=== PATIENT | female | born 1965 | race Caucasian/White ===

== ENCOUNTER 2016-09-04 15:40 | Emergency (ER) | payer OTHER ==
[~2016-09-04] VITALS: Ht 165.1 cm; Wt 95.3 kg
[2016-09-04] MEDS ORDERED: ALDACTONE50 MG PO (15:45)
[2016-09-04] MEDS ORDERED: LEVOTHYROXIN0.088 MG PO (15:45)
[2016-09-04] MEDS ORDERED: PAXIL10 MG PO (15:45)
[2016-09-04 16:41] VITALS: BP 137/63
[2016-09-04] MEDS ORDERED: IBUPROFEN 800800 M1 PO (16:56)
[2016-09-04] MEDS ORDERED: NORFLEX100 MG PO (16:56)
== END 2016-09-04 17:09 | disposition home or self-care (01) ==
LOC: ER 15:40
DX: S09.90XA Unspecified injury of head, initial encounter (principal); E03.9 Hypothyroidism, unspecified; F41.9 Anxiety disorder, unspecified; F10.99 Alcohol use, unspecified with unspecified alcohol-induced disorder; Z90.710 Acquired absence of both cervix and uterus; V89.2XXA Person injured in unspecified motor-vehicle accident, traffic, initial encounter; Y93.I9 Activity, other involving external motion; Y92.89 Other specified places as the place of occurrence of the external cause; Y99.8 Other external cause status

== ENCOUNTER → 2017-01-12 | Outpatient (CLI) | payer OTHER ==
[~2017-01-12] MED LIST: ALDACTONE50 MG PO; IBUPROFEN 800800 M1 PO; LEVOTHYROXIN0.088 MG PO; NORFLEX100 MG PO; PAXIL10 MG PO
== END ==
LOC: RAD 14:45
DX: Z12.31 Encounter for screening mammogram for malignant neoplasm of breast (principal)

== ENCOUNTER → 2017-01-14 | Outpatient (CLI) | payer OTHER | LOC: ULTRA 13:03 | DX: N60.02 Solitary cyst of left breast (principal) ==